=== PATIENT | female | born 1965 | race Caucasian/White ===

== ENCOUNTER → 2024-07-15 | Day surgery (SDC) | payer BC ==
[~2024-07-15] VITALS: Ht 149.9 cm; Wt 77.1 kg
[~2024-07-15] MED LIST: ATOM100C PO; ATOR20TA PO; BUPR300T52 PO; DEXAMETHASONE 4MG/ML 1ML VIAL ONE; DOCU-422 MT; FAMO-135 PO; FENTANYL CITRATE/PF 50MCG/ML 2ML VIAL ONE; FENTANYL CITRATE/PF 50MCG/ML 5ML VIAL ONE; HYDROMORPHONE HCL/PF 1MG/ML INJ IV PRN; HYDROMORPHONE HCL/PF 1MG/ML INJ ONE; LABETALOL 5MG/ML 4ML INJ IV PRN; LINA290C PO; LOSA25TA26 PO; MEPERIDINE HCL/PF 25MG/ML CPJ IV PRN; MIDAZOLAM HCL 2 MG/2 ML VIAL ONE; OXYC-100 MT; PROPOFOL 200MG/20ML VIAL IV ONE; ROCURONIUM BROMIDE 10MG/ML VIAL 5ML IV ONE; SKIN ADHESIVE 0.7 GM EA TOP ONE; SUGAMMADEX SODIUM 200MG/2ML VIAL IV ONE; TRAZ-252 PO
[2024-07-15] MEDS: LACTATED RINGERS 1,000 ML IV SCH (06:20)
[2024-07-15] MEDS: ONDANSETRON HCL 4MG/2ML INJ IV PRN (13:09)
== END | disposition home or self-care (01) ==
LOC: OR 05:16
PROVIDERS: ATTEND Surgery
DX: N62 Hypertrophy of breast (principal); G47.30 Sleep apnea, unspecified; F32.9 Major depressive disorder, single episode, unspecified; Z79.899 Other long term (current) drug therapy; Z98.890 Other specified postprocedural states; Z91.041 Radiographic dye allergy status
CPT/HCPCS: 19318; 88305; J1171; J3010 ×2; J1100; J2250; J2405; J2704; J3490